=== PATIENT | male | born 1950 | race Hispanic/Latino ===

== ENCOUNTER 2016-06-06 16:00 | Emergency (ER) | payer MEDICARE, MEDICAID ==
[2016-06-06 16:26] VITALS: O2SAT 100
[2016-06-06] MEDS ORDERED: TETANUS,DIPHTHERIA,PERTUSSIS 1 EA SYG IM ONE (16:38)
--- NOTE | 2016-06-06 16:38 | RAD ---
EXAM DESCRIPTION: Hand,Right 3 Views CLINICAL HISTORY: hand pain after caught in farm machinery FINDINGS/ IMPRESSION: No fracture or dislocation. No focal osteochondral lesion Normal mineralization. No diagnostic soft tissue abnormality No advanced osteoarthritis or inflammatory arthritis Electronically signed by: Shreyas Craig MD 06/06/2016 4:37 PM CDT
--- NOTE | 2016-06-06 16:44 | ED.PDOC ---
History of Present Illness - General Chief Complaint: Upper Extremity Injury Stated Complaint: right hand injury Time Seen by Provider: 06/06/16 16:05 Source: patient Exam Limitations: no limitations - History of Present Illness Initial Comments: Patient presents with right hand pain after getting it caught in a "roto rooter " at a farm. He says the 4th and 5th digits hurt the most. The pain is throbbing and non-radiating. Worse with movement, better with rest. No previous hx of trauma to the area. No other complaints. Timing/Duration: 1-3 hours Severity: moderate Improving Factors: rest Worsening Factors: movement Associated Symptoms: denies symptoms Allergies/Adverse Reactions: Allergies NO KNOWN ALLERGY Allergy (Verified 06/06/16 16:31) Home Medications: Ambulatory Orders Ibuprofen 600 mg PO Q8HRS PRN #30 tab 03/25/14 Review of Systems - Review of Systems Constitutional: States: no symptoms reported EENTM: States: no symptoms reported Respiratory: States: no symptoms reported Cardiology: States: no symptoms reported Gastrointestinal/Abdominal: States: no symptoms reported Genitourinary: States: no symptoms reported Musculoskeletal: States: see HPI Skin: States: no symptoms reported Neurological: States: no symptoms reported Endocrine: States: no symptoms reported Hematologic/Lymphatic: States: no symptoms reported Past Medical History (General) - Patient Medical History Hx Seizures: No Hx Stroke: No Hx Dementia: No Hx Asthma: No Hx of COPD: No Hx Cardiac Disorders: No Hx Congestive Heart Failure: No Hx Pacemaker: No Hx Hypertension: Yes Hx Thyroid Disease: No Hx Diabetes: Yes Hx Gastroesophageal Reflux: Yes Hx Renal Disease: No Hx Cancer: No Hx of HIV: No Hx Hepatitis C: No Hx MRSA: Yes MRSA Source:: Wound - Vaccination History Hx Tetanus, Diphtheria Vaccination: No Hx Influenza Vaccination: No Hx Pneumococcal Vaccination: No - Social History Hx Tobacco Use: No Hx Chewing Tobacco Use: No Hx Alcohol Use: Yes Hx Substance Use: No Hx Substance Use Treatment: No Hx Depression: No Hx Physical Abuse: No Hx Emotional Abuse: No Hx Suspected Abuse: No - Female History Patient : No Family Medical History - Family History Mother Family History: No Known Living Status: Still Living Physical Exam - Physical Exam General Appearance: Alert Respiratory: lungs clear Cardiovascular/Chest: regular rate, rhythm Gastrointestinal/Abdominal: normal bowel sounds, non tender, soft Extremity: other - right 4th and 5th digits are TTP at the MIP joints. There is a superficial abrasion on the postetior MIP joint of the 5th digit. Patient has full sensation in all fingers. 5/5 camp advisor strength, Capillary refill is less than 2 seconds in all fingers and entire hand. Neurologic: no motor/sensory deficits, normal mood/affect Progress - Progress Progress: 06/06/16 16:44 Three view of right hand showed no bony abnormalities, fractures, nor dislocations. Patient given tetanus booster. Departure - Departure Clinical Impression: Contusion of hand including fingers Disposition: Discharge to Home or Self Care Condition: Good Departure Forms: ED Discharge - Pt. Copy, Patient Portal Self Enrollment Diet: resume usual diet Activity: increase activity as tolerated Home Medications: Ambulatory Orders Ibuprofen 600 mg PO Q8HRS PRN #30 tab 03/25/14 Additional Instructions: May use tylenol or ibuprofen for pain control. Ice to painful area three times per day for three days. Increase activity as tolerated.
[2016-06-06 17:38] VITALS: BP 156/74; TEMP 98.1
== END 2016-06-06 17:21 | disposition home or self-care (01) ==
LOC: ER 16:00
DX: S60.00XA Contusion of unspecified finger without damage to nail, initial encounter (principal); S60.221A Contusion of right hand, initial encounter; I10 Essential (primary) hypertension; E11.9 Type 2 diabetes mellitus without complications; K21.9 Gastro-esophageal reflux disease without esophagitis; Z86.14 Personal history of Methicillin resistant Staphylococcus aureus infection; Z23 Encounter for immunization; W30.89XA Contact with other specified agricultural machinery, initial encounter; Y92.79 Other farm location as the place of occurrence of the external cause

== ENCOUNTER 2016-08-03 19:55 | Emergency (ER) | payer MEDICARE, MEDICAID ==
[2016-08-03 20:17] VITALS: TEMP 97.2
[2016-08-03] MEDS ORDERED: LIDOCAINE 1% 10 ML VIAL INJ ONE (20:50)
[2016-08-03] MEDS ORDERED: CHLORHEXIDINE GLUCONATE 4 % 15 ML UD TOP ONE (20:52)
--- NOTE | 2016-08-03 21:37 | ED.PDOC ---
History of Present Illness - General Chief Complaint: Laceration Stated Complaint: laceration to right lower leg Time Seen by Provider: 08/03/16 20:44 Source: patient, RN notes reviewed, Vital Signs reviewed Exam Limitations: no limitations - History of Present Illness Initial Comments: Sal Li 66 y/o male stated that he tripped on metal railings at home causing laceration to right leg then fell.Denies syncopal episodes,head or neck injuries. Occurred: this evening Pain - Lower Extremity: moderate: Right Burris Method of Injury: other - tripped on metal railings Improving Factors: rest Worsening Factors: movement Associated Symptoms: pain to injured leg Allergies/Adverse Reactions: Allergies NO KNOWN ALLERGY Allergy (Verified 06/06/16 16:31) Home Medications: Ambulatory Orders Acetamin W/Cod #3 Tab [Tylenol w/CODEINE #3] 1 ea PO Q6HR PRN #10 tab 08/03/16 Review of Systems - Review of Systems Constitutional: States: no symptoms reported EENTM: States: no symptoms reported Respiratory: States: no symptoms reported Cardiology: States: no symptoms reported Gastrointestinal/Abdominal: States: no symptoms reported Genitourinary: States: no symptoms reported Musculoskeletal: States: no symptoms reported Skin: States: see HPI Neurological: States: no symptoms reported Endocrine: States: no symptoms reported Past Medical History (General) - Patient Medical History Hx Seizures: No Hx Stroke: No Hx Dementia: No Hx Asthma: No Hx of COPD: No Hx Cardiac Disorders: No Hx Congestive Heart Failure: No Hx Pacemaker: No Hx Hypertension: Yes Hx Thyroid Disease: No Hx Diabetes: Yes Hx Gastroesophageal Reflux: Yes Hx Renal Disease: No Hx Cancer: No Hx of HIV: No Hx Hepatitis C: No Hx MRSA: Yes MRSA Source:: Wound Surgical History: no surgical history - Vaccination History Hx Tetanus, Diphtheria Vaccination: Yes Hx Influenza Vaccination: Yes Hx Pneumococcal Vaccination: No - Social History Hx Tobacco Use: Yes Hx Chewing Tobacco Use: No Hx Alcohol Use: Yes Hx Substance Use: No Hx Substance Use Treatment: No Hx Depression: No Hx Physical Abuse: No Hx Emotional Abuse: No Hx Suspected Abuse: No - Activities of Daily Living Patient Lives Alone: No - family - Female History Patient : No Family Medical History - Family History Mother Family History: No Known Living Status: Still Living Physical Exam - Physical Exam General Appearance: Alert, Comfortable, No apparent distress Eyes, Ears, Nose, Throat: PERRL/EOMI, normal ENT inspection, TMs normal, pharynx normal Neck: non-tender, supple, normal inspection Cardiovascular/Respiratory: regular rate, rhythm, no M/R/G, normal peripheral pulses, normal breath sounds, no respiratory distress Gastrointestinal/Abdominal: non-tender, no organomegaly Back: normal inspection, no CVA tenderness, no vertebral tenderness Thigh/Hip: normal inspection, no evidence of injury Leg: other - right leg laceration gaping ,bleeding Knee: normal inspection, no evidence of injury Ankle: normal inspection, no evidence of injury Foot: normal inspection, no evidence of injury Neuro/Tendon: normal sensation, normal motor functions, responds to pain Mental Status: alert, oriented x 3 Skin: normal color, warm/dry, other - 6 cm laceration right leg Procedures - Laceration/Wound Repair Right Calf Wound Length (cm): 6 Wound's Depth, Shape: irregular, flap Wound Explored: no foreign body removed Irrigated w/ Saline (cc's): 50 Betadine Prep?: No - hibiclens Anesthesia: 1% Lidocaine Volume Anesthetic (cc's): 10 Wound Repaired With: sutures Suture Size/Type: 4:0, prolene Layer Closure?: No - skin undermining done to release tension Sterile Dressing Applied?: Yes Departure - Departure Clinical Impression: Laceration of leg not thigh, right Qualifiers: Encounter type: initial encounter Qualified Code(s): S81.811A - Laceration without foreign body, right lower leg, initial encounter Time of Disposition: 21:44 Disposition: Discharge to Home or Self Care Departure Forms: ED Discharge - Pt. Copy, Patient Portal Self Enrollment Instructions: How to Care for a Laceration After Repair, DI for Laceration Repair Referrals: NIMA LANIER [Primary Care Provider] - 1-2 Weeks Prescriptions: Acetamin W/Cod #3 Tab [Tylenol w/CODEINE #3] 1 ea PO Q6HR PRN #10 tab PRN Reason: Pain Home Medications: Ambulatory Orders Acetamin W/Cod #3 Tab [Tylenol w/CODEINE #3] 1 ea PO Q6HR PRN #10 tab 08/03/16 Additional Instructions: Elevate right leg 20 degrees at bedtime for 10 days;Removal of sutures 2016 [facility] ER
[2016-08-03] MEDS ORDERED: HYDROCOD/APAP 10/325 (ER DISP) # 3 tablets PO ONE (21:47)
[2016-08-03 21:57] VITALS: BP 167/72; O2SAT 98
== END 2016-08-03 21:57 | disposition home or self-care (01) ==
LOC: ER 19:55
DX: S81.811A Laceration without foreign body, right lower leg, initial encounter (principal); W01.198A Fall on same level from slipping, tripping and stumbling with subsequent striking against other object, initial encounter; Z86.14 Personal history of Methicillin resistant Staphylococcus aureus infection; Z87.891 Personal history of nicotine dependence; I10 Essential (primary) hypertension; Y92.009 Unspecified place in unspecified non-institutional (private) residence as the place of occurrence of the external cause

== ENCOUNTER → 2016-08-08 | Outpatient (CLI) | payer MEDICARE, MEDICAID | END | disposition home or self-care (01) | LOC: LAB 07:48 | PROVIDERS: ATTEND Emergency Medicine | DX: E78.5 Hyperlipidemia, unspecified (principal); Z00.00 Encounter for general adult medical examination without abnormal findings; E11.9 Type 2 diabetes mellitus without complications; I10 Essential (primary) hypertension; R97.20 Elevated prostate specific antigen [PSA]; R53.83 Other fatigue | CPT/HCPCS: 36415; 80053; 80061; 83036; 84443; 85025; G0103 ==

== ENCOUNTER 2016-08-17 16:16 | Emergency (ER) | payer MEDICARE, MEDICAID ==
[2016-08-17] MEDS ORDERED: SODIUM CHLORIDE 0.9% (FLUSH) 10 ML SYG IV PRN (16:39)
[2016-08-17] MEDS ORDERED: ASPIRIN TABLET 325 MG TAB PO ONE (16:39)
[2016-08-17] MEDS ORDERED: ONDANSETRON INJ 4 MG/2 ML VIAL IV ONE (16:39)
[2016-08-17] MEDS ORDERED: NITROGLYCERIN 0.4 MG 25 EA TAB SL ONE (16:39)
--- NOTE | 2016-08-17 16:39 | ED.PDOC ---
History of Present Illness - General Chief Complaint: General Stated Complaint: chest pain Time Seen by Provider: 08/17/16 16:38 Source: patient Exam Limitations: no limitations - History of Present Illness Initial Comments: Sal Li 66 y/o male stated he had been having non radiating dull chest pain left side since he fell on his left side 2 weeks ago.Stated aggravated by moving left arm.No diaphoresis ,no sob.no nausea vomiting .Has history of hypertension and DM2 taking mostly oral meds. No previous history of heart disease. Timing/Duration: other - 2 weeks ago Severity: moderate Improving Factors: rest Worsening Factors: movement Associated Symptoms: denies symptoms Allergies/Adverse Reactions: Allergies NO KNOWN ALLERGY Allergy (Verified 08/17/16 18:15) Home Medications: Ambulatory Orders Aspirin [Aspirin Adult Low Dose] 81 mg PO BEDTIME #90 tab 08/17/16 Lidocaine [Aspercreme Lidocaine Patc] 4 % EX BID #20 pad 08/17/16 Lisinopril 10 mg PO DAILY 08/17/16 metFORMIN HCL [Glucophage] 500 mg PO DAILY 08/17/16 Review of Systems - Review of Systems Constitutional: States: no symptoms reported EENTM: States: no symptoms reported Respiratory: States: no symptoms reported Cardiology: States: see HPI Gastrointestinal/Abdominal: States: no symptoms reported Genitourinary: States: no symptoms reported Musculoskeletal: States: see HPI Skin: States: no symptoms reported Neurological: States: no symptoms reported Endocrine: States: no symptoms reported Hematologic/Lymphatic: States: no symptoms reported Past Medical History (General) - Patient Medical History Hx Seizures: No Hx Stroke: No Hx Dementia: No Hx Asthma: No Hx of COPD: No Hx Cardiac Disorders: No Hx Congestive Heart Failure: No Hx Pacemaker: No Hx Hypertension: Yes Hx Thyroid Disease: No Hx Diabetes: Yes Hx Gastroesophageal Reflux: Yes Hx Renal Disease: No Hx Cancer: No Hx of HIV: No Hx Hepatitis C: No Hx MRSA: Yes MRSA Source:: Wound Surgical History: appendectomy - Vaccination History Hx Tetanus, Diphtheria Vaccination: Yes Hx Influenza Vaccination: Yes Hx Pneumococcal Vaccination: No - Social History Hx Tobacco Use: Yes Hx Chewing Tobacco Use: No Hx Alcohol Use: Yes Hx Substance Use: No Hx Substance Use Treatment: No Hx Depression: No Hx Physical Abuse: No Hx Emotional Abuse: No Hx Suspected Abuse: No - Activities of Daily Living Patient Lives Alone: No - Grooming Ability: Independent Eating (Feeding) Ability: Independent Toileting Ability: Independent - Female History Patient : No Family Medical History - Family History Mother Family History: No Known Living Status: Still Living Hx Family Hypertension: Yes - dad Hx Cardiac Disease: Yes - mom still alive 86 y/o Hx Family Diabetes: Yes - dad Physical Exam - Physical Exam General Appearance: Alert, Comfortable, No apparent distress Eye Exam: bilateral normal Ears, Nose, Throat: hearing grossly normal, normal ENT inspection, normal pharynx Neck: non-tender, full range of motion, supple Respiratory: lungs clear, normal breath sounds, other - tenderness to palpation left upper rib cage Cardiovascular/Chest: normal peripheral pulses, regular rate, rhythm, no murmur Peripheral Pulses: radial,right: 2+, radial,left: 2+ Gastrointestinal/Abdominal: normal bowel sounds, non tender, soft Back Exam: normal inspection, no CVA tenderness, no vertebral tenderness Extremity: normal range of motion, non-tender, no calf tenderness Neurologic: no motor/sensory deficits, alert, normal mood/affect, oriented x 3 Skin Exam: normal color, warm/dry Lymphatic: no adenopathy Progress - Results/Orders Results/Orders: 08/17/16 16:30 EKG STAT 08/17/16 16:39 IV Care:Saline Lock per Protoc QSHIFT Telemetry .ONCE Sodium Chloride 0.9% (Flush) [Saline Flush Syringe] 10 ml IV PRN PRN EKG Stat Pulse Ox Stat Laboratory Results WBC 6.1 K/mm3 (4.8-10.8) 08/17/16 16:57 RBC 2.95 M/mm3 (4.70-6.10) L 08/17/16 16:57 Hgb 11.5 gm/dL (14.0-18.0) L 08/17/16 16:57 Hct 34.1 % (42.0-52.0) L 08/17/16 16:57 MCV 115.3 fl (80.0-94.0) H 08/17/16 16:57 MCH 38.9 pg (27.0-31.0) H 08/17/16 16:57 MCHC 33.7 g/dL (33.0-37.0) 08/17/16 16:57 RDW 13.9 % (11.5-14.5) 08/17/16 16:57 Plt Count 269 K/mm3 (130-400) 08/17/16 16:57 MPV 7.6 fl (7.40-10.4) 08/17/16 16:57 Absolute Neuts (auto) 2.80 K/uL (1.8-6.8) 08/17/16 16:57 Absolute Lymphs (auto) 2.50 K/uL (1.0-3.4) 08/17/16 16:57 Absolute Monos (auto) 0.60 K/uL (0.2-0.8) 08/17/16 16:57 Absolute Eos (auto) 0.20 K/uL (0.0-0.4) 08/17/16 16:57 Absolute Basos (auto) 0.00 K/uL (0.0-0.1) 08/17/16 16:57 Neutrophils % 46.0 % (42.0-78.0) 08/17/16 16:57 Lymphocytes % 41.2 % (20.0-50.0) 08/17/16 16:57 Monocytes % 9.2 % (2.0-9.0) H 08/17/16 16:57 Eosinophils % 2.8 % (1.0-5.0) 08/17/16 16:57 Basophils % 0.8 % (0.0-2.0) 08/17/16 16:57 PT 10.5 SECONDS (9.4-12.5) 08/17/16 16:57 INR 0.930 08/17/16 16:57 PTT (SP) 30.6 SECONDS (25.1-36.5) 08/17/16 16:57 D-Dimer, Quantitative < 230 ng/mL (0-230) 08/17/16 16:57 Sodium 138 mmol/L (135-145) 08/17/16 16:57 Potassium 3.3 mmol/L (3.6-5.0) L 08/17/16 16:57 Chloride 104 mmol/L (101-111) 08/17/16 16:57 Carbon Dioxide 28 mmol/L (21-31) 08/17/16 16:57 Anion Gap 9.3 (12-18) L 08/17/16 16:57 BUN 14 mg/dL (7-18) 08/17/16 16:57 Creatinine 0.96 mg/dL (0.6-1.3) 08/17/16 16:57 BUN/Creatinine Ratio 14.6 (10-20) 08/17/16 16:57 Random Glucose 147 mg/dL (70-105) H 08/17/16 16:57 Serum Osmolality 278.8 mOsm/L (275-295) 08/17/16 16:57 Calcium 8.7 mg/dL (8.4-10.2) 08/17/16 16:57 Magnesium 1.6 mg/dL (1.8-2.5) L 08/17/16 16:57 Total Bilirubin 0.6 mg/dL (0.2-1.0) 08/17/16 16:57 Direct Bilirubin < 0.1 mg/dL (0-0.2) 08/17/16 16:57 Indirect Bilirubin 0.5 mg/dL (0.2-0.8) 08/17/16 16:57 AST 46 IU/L (10-42) H 08/17/16 16:57 ALT 42 IU/L (10-60) 08/17/16 16:57 Alkaline Phosphatase 65 IU/L (42-121) 08/17/16 16:57 Creatine Kinase 196 IU/L (38-174) H 08/17/16 16:57 CK-MB (CK-2) 3.0 ng/mL (0.0-4.4) 08/17/16 16:57 CK-MB (CK-2) % Not Reportable 08/17/16 16:57 Troponin I < 0.02 ng/mL (0.01-0.05) 08/17/16 16:57 B-Natriuretic Peptide 84.4 pg/ml (0-100) 08/17/16 16:57 Serum Total Protein 6.8 gm/dL (6.4-8.2) 08/17/16 16:57 Albumin 3.6 g/dl (3.2-5.5) 08/17/16 16:57 Vital Signs - 8 hr 08/17/16 08/17/16 08/17/16 16:20 17:20 18:16 Temperature 98.5 F Pulse Rate [ 63 59 L 60 Left Radial] Respiratory 18 18 18 Rate Blood Pressure 164/76 168/79 174/83 [Left Arm] O2 Sat by Pulse 99 94 L 98 Oximetry - EKG/XRAY/CT EKG: Sinus, LVH Comments: heart rate 63 XRAY: chest - and rib series no rib fractures or pneu,othorax Departure - Departure Clinical Impression: Contusion of chest wall with intact skin Chest pain Qualifiers: Chest pain type: unspecified Qualified Code(s): R07.9 - Chest pain, unspecified Time of Disposition: 18:47 Disposition: Discharge to Home or Self Care Condition: Good Departure Forms: ED Discharge - Pt. Copy, Patient Portal Self Enrollment Referrals: NIMA LANIER [Primary Care Provider] - 1-2 Weeks Prescriptions: Aspirin [Aspirin Adult Low Dose] 81 mg PO BEDTIME #90 tab Lidocaine [Aspercreme Lidocaine Patc] 4 % EX BID #20 pad Home Medications: Ambulatory Orders Aspirin [Aspirin Adult Low Dose] 81 mg PO BEDTIME #90 tab 08/17/16 Lidocaine [Aspercreme Lidocaine Patc] 4 % EX BID #20 pad 08/17/16 Lisinopril 10 mg PO DAILY 08/17/16 metFORMIN HCL [Glucophage] 500 mg PO DAILY 08/17/16 Additional Instructions: RETURN TO EMERGENCY ROOM NEEDED
[2016-08-17 18:15] VITALS: TEMP 98.5
--- NOTE | 2016-08-17 18:29 | RAD ---
EXAM DESCRIPTION: Chest,1 View (accession [id number]), Ribs,Left 3 Views (accession [id number]) CLINICAL HISTORY: 66 years, Male, pain COMPARISON: Chest x-ray dated 03/25/2014. FINDINGS: A frontal chest radiograph and for radiographs of the left-sided ribs were performed. The lungs are well expanded and clear. The costophrenic sulci are sharp. The aortic arch is calcified. The cardiac silhouette, hilar regions, trachea, soft tissues and bony structures are unremarkable. In particular, no pneumothorax or rib fracture is seen. A 4 mm calcification projects over the RIGHT upper quadrant. Degenerative changes are noted in the lumbar spine. Incidental transitional L1 vertebral body. IMPRESSION: No evidence of acute traumatic thoracic injury. No rib fracture is seen. No pneumothorax. Possible gallstone. Electronically signed by: Radha Gonzales MD 08/17/2016 6:29 PM CDT
--- NOTE | 2016-08-17 18:29 | RAD ---
EXAM DESCRIPTION: Chest,1 View (accession [id number]), Ribs,Left 3 Views (accession [id number]) CLINICAL HISTORY: 66 years, Male, pain COMPARISON: Chest x-ray dated 03/25/2014. FINDINGS: A frontal chest radiograph and for radiographs of the left-sided ribs were performed. The lungs are well expanded and clear. The costophrenic sulci are sharp. The aortic arch is calcified. The cardiac silhouette, hilar regions, trachea, soft tissues and bony structures are unremarkable. In particular, no pneumothorax or rib fracture is seen. A 4 mm calcification projects over the RIGHT upper quadrant. Degenerative changes are noted in the lumbar spine. Incidental transitional L1 vertebral body. IMPRESSION: No evidence of acute traumatic thoracic injury. No rib fracture is seen. No pneumothorax. Possible gallstone. Electronically signed by: Radha Gonzales MD 08/17/2016 6:29 PM CDT
[2016-08-17 18:30] VITALS: BP 174/83; O2SAT 98
== END 2016-08-17 19:00 | disposition home or self-care (01) ==
LOC: ER 16:16
DX: S20.219A Contusion of unspecified front wall of thorax, initial encounter (principal); E11.9 Type 2 diabetes mellitus without complications; I10 Essential (primary) hypertension; K21.9 Gastro-esophageal reflux disease without esophagitis; Z79.82 Long term (current) use of aspirin; Z86.14 Personal history of Methicillin resistant Staphylococcus aureus infection; Z87.891 Personal history of nicotine dependence; W19.XXXA Unspecified fall, initial encounter; Y92.9 Unspecified place or not applicable

== ENCOUNTER → 2017-03-01 | Outpatient (CLI) | payer MEDICARE, MEDICAID | LOC: LAB.O 09:26 | PROVIDERS: ATTEND Emergency Medicine | DX: I10 Essential (primary) hypertension (principal); E11.9 Type 2 diabetes mellitus without complications; D52.0 Dietary folate deficiency anemia ==

== ENCOUNTER → 2017-10-27 | Outpatient (CLI) | payer MEDICARE, MEDICAID | LOC: LAB.O 09:12 | PROVIDERS: ATTEND Nurse Practitioner Acute Care | DX: B20 Human immunodeficiency virus [HIV] disease (principal) ==

== ENCOUNTER → 2017-12-01 | Outpatient (CLI) | payer MEDICARE, MEDICAID | LOC: LAB.O 09:29 | PROVIDERS: ATTEND Internal Medicine Interventional Cardiology | DX: R55 Syncope and collapse (principal); I10 Essential (primary) hypertension ==

== ENCOUNTER → 2018-05-11 | Outpatient (CLI) | payer MEDICARE, MEDICAID | LOC: LAB.O 05-08 09:01 | PROVIDERS: ATTEND Internal Medicine Infectious Disease | DX: B20 Human immunodeficiency virus [HIV] disease (principal) ==

== ENCOUNTER → 2018-06-16 | Outpatient (CLI) | payer MEDICARE, MEDICAID ==
--- NOTE | 2018-06-16 20:27 | MRI ---
EXAM DESCRIPTION: Brain w/o Contrast: MRI. CLINICAL HISTORY: TRANS CEREBRAL ISCHEMIC ATTACK COMPARISON: None. TECHNIQUE: Multiplanar, high-field MRI unit, multiple diffusion sequences, multiple conventional sequences without contrast. FINDINGS: Hyperintense FLAIR and T2-weighted signal in the periventricular white matter in the joseph radiata and centrum semiovale and beavers-white matter junctions of the cerebral hemispheres. Relatively symmetric . No hemorrhage, no cerebral edema, no mass-effect. No diffusion restriction. Also hyperintense FLAIR and T2 signal in the bilateral basal ganglia with prominent vascularity symmetric bilaterally with no diffusion restriction.. Hyperintense FLAIR and T2 signal in the carlos of the brainstem. No diffusion restriction. Normal signal in the bilateral cerebellar hemispheres. No hemorrhage, no cerebral edema, no mass-effect. No diffusion restriction. Concordance of the diffusion and non-diffusion sequences with no diffusion restriction. Cortical sulci, ventricles, and other CSF spaces, and the subdural spaces are normally configured. No effacement or displacement. No midline shift. No extra-axial hemorrhage. Normal flow signal void in the major vessels of the kenaitze Elizondo, and the venous sinuses. IACs are symmetric bilaterally. Normal signal in the bilateral mastoid air cells. No mass effect in the bilateral cerebellopontine angles. Pituitary gland occupies approximately half of the sella. Base of the cerebellar tonsils is above the foramen magnum. Normal signal in the bilateral paranasal sinuses. The bony calvarium is intact. IMPRESSION: 1. Diffuse bilateral periventricular white matter signal changes involving the joseph radiata and centrum semiovale with no hemorrhage or mass effect. Differential includes cerebral microvascular disease, age-related changes, demyelinating process such as multiple sclerosis, inflammatory process, or vasculitis. Also minimal ischemic changes in the bilateral basal ganglia. No intra-axial or extra-axial hemorrhage, no mass effect or midline shift, no acute or subacute infarction. Also minimal involvement of the carlos of the brainstem. Electronically signed by: Gabriel Kruger MD 06/16/2018 8:24 PM CDT
--- NOTE | 2018-06-17 10:13 | US ---
EXAM DESCRIPTION: Carotid Duplex: ULTRASOUND. CLINICAL HISTORY: 68 years Male TRANS CEREBRAL ISCHEMIC ATTACK COMPARISON: MRI of the brain on the same visit. TECHNIQUE: Transcutaneous scanning utilizing beavers-scale and Doppler modes to evaluate the bilateral carotid systems and vertebral arteries. Percentage of diameter of stenosis or no stenosis recorded will be based upon NASCET criteria. FINDINGS: Peak systolic/end diastolic (CM-Sec) CCA Right 63/9 Left 83/11. ICA Right proximal 38/5, distal 69/14. Left proximal 43/7, Distal 70/13. Vertebral Right 58/9 Left 49/9. ECA (PS Only) Right 110 left 97. ICA/CCA peak systolic ratio: Right 0.8 Left 0.8 ICA/CCA end diastolic ratio: Right n/a Left 1.7 Vertebral arteries: antegrade flow. Comments Comments: Bilateral plaque in the common carotid artery bifurcations and proximal ICAs. 29% area stenosis in the right mid CCA bulb and 32% diameter stenosis. Minimal spectral broadening in the proximal left ICA. IMPRESSION: 1. Doppler evaluation of the bilateral carotid systems and vertebral arteries shows no hemodynamically significant stenoses. 2. No significant amount of plaque seen in the carotid arteries bilaterally. Bilateral vertebral arteries showed antegrade-cephalad flow. Electronically signed by: Gabriel Kruger MD 06/17/2018 10:10 AM CDT
== END ==
LOC: MRI 13:30
PROVIDERS: ATTEND Emergency Medicine
DX: G45.9 Transient cerebral ischemic attack, unspecified (principal)

== ENCOUNTER → 2018-07-16 | Outpatient (CLI) | payer MEDICARE, MEDICAID ==
--- NOTE | 2018-07-17 08:23 | CT ---
EXAM DESCRIPTION: Soft Tissue Neck w/wo Contrast CLINICAL HISTORY: ENLARGED LYMPHNODES COMPARISON: None. TECHNIQUE: Pre and postcontrast CT images of the neck are obtained with coronal and sagittal reconstructed images. This exam was performed according to our departmental dose-optimization program, which includes automated exposure control, adjustment of the mA and/or kV according to patient size and/or use of iterative reconstruction technique . FINDINGS: Markers placed in the regions of palpable abnormality are noted. Marker lateral to the left skull base inferior to the mastoid air cells is seen. No underlying soft tissue or cystic mass is seen. No obvious tissue asymmetry. The posterior aspect of the sternocleidomastoid muscle is seen in this region. Second marker is placed midline in the posterior upper neck at the level of C2. No focal underlying soft tissue or cystic mass is seen. Increased amount of subcutaneous soft tissue fat is seen posterior to the neck that appears relatively symmetric. Visualized skull base shows no acute findings. Bilateral parotid and submandibular glands are normal and symmetric. Soft tissue of the posterior pharynx and oropharynx is symmetric and unremarkable. The epiglottis and vocal cords are unremarkable. Thyroid is unremarkable. Mild to moderate calcified plaque of the carotid bulb to proximal internal carotid artery is seen. Nonspecific less than 1 cm submandibular and cervical chain lymph nodes are seen. The largest submandibular lymph nodes measure 10 mm short axis on the right and 9 mm on the left. The lung apices are unremarkable. Mild to moderate disc space narrowing and disc osteophytic ridging is seen from C4 through C7. At least moderate bilateral foraminal encroachment at C4-5 is seen. Degenerative changes of the C1-2 are seen. Cord indentation is noted with multiple caries and periapical lucency in the posterior molars of the mandible. IMPRESSION: Borderline submandibular lymph nodes are probably reactive. Increased subcutaneous fat posterior to the neck appear symmetric. Differential includes sequela of long-term steroid use, "buffalo hump." Less likely symmetric lipoma is a consideration. No significant underlying soft tissue or cystic nodule is seen in the marker at the left skull base. Inferior to this is a small lymph node in the deep subcutaneous soft tissues measuring 7 x 12 mm. Spondylitic changes of the spine are seen. Poor dentition is noted. Correlate with dental x-rays. Electronically signed by: Ethan Seals MD 07/17/2018 8:21 AM CDT
== END ==
LOC: CT 10:08
PROVIDERS: ATTEND Emergency Medicine
DX: R59.0 Localized enlarged lymph nodes (principal); I10 Essential (primary) hypertension; E11.9 Type 2 diabetes mellitus without complications

== ENCOUNTER → 2018-10-01 | Outpatient (CLI) | payer MEDICARE, MEDICAID | LOC: LAB.O 09:54 | PROVIDERS: ATTEND Internal Medicine Endocrinology, Diabetes & Metabolism | DX: E88.1 Lipodystrophy, not elsewhere classified (principal) ==

== ENCOUNTER → 2018-12-07 | Outpatient (CLI) | payer MEDICARE, MEDICAID | LOC: LAB.O 12-04 08:41 | PROVIDERS: ATTEND Internal Medicine Infectious Disease | DX: B20 Human immunodeficiency virus [HIV] disease (principal) ==

== ENCOUNTER → 2019-11-30 | Outpatient (CLI) | payer MEDICARE, MEDICAID ==
--- NOTE | 2019-11-30 13:53 | CT ---
EXAM DESCRIPTION: Abdoment/Pelvis w/o Contrast: Computed Tomography. CLINICAL HISTORY: 69 years Male CHRONIC KIDNEY DISEASE STAGE 4 COMPARISON: None. TECHNIQUE: Spiral-axial scans 2.5 x 2.5 mm intervals through the abdomen and pelvis without oral or IV contrast. Coronal and sagittal 2.0 mm reconstructions. Total Exam DLP: 871 mGy-cm. This exam was performed according to our departmental CT dose-optimization program which includes automated exposure control, adjustment of the mA and/or kV according to patient size and/or use of iterative reconstruction technique; to reduce radiation dose to as low as reasonably achievable (ALARA). Study performed without IV contrast due to poor renal function. FINDINGS: Lung bases and pleura: 5 mm subpleural nodule versus pleural nodule lateral superior segment left lower lobe on axial series, image 15. Coronary artery calcifications. Liver, stomach, spleen, and adrenal glands: 1.7 cm mass in the left adrenal gland with Hounsfield density -20 consistent with an adrenal adenoma. Right adrenal gland and spleen are negative. Liver is unremarkable except for scattered calcifications. Pancreas, Gallbladder, and Ducts: Gallbladder visualized. Normal caliber of the duct. Pancreas negative. Kidneys and Ureters: Thinning of the cortex and low-density cystlike structure with calcifications abutting the thickened cortex posterior upper pole right kidney. Calcification is 8 millimeters and not interpreted to be within the collecting system. Second calcification is 2.7 mm in the same site. Questionable adjacent pararenal fatty stranding. 2.5 cm cyst lateral cortex left kidney lower pole. No calcifications or perirenal fluid. Bilateral ureters normal caliber. Mesentery: . Residual paired Umbilical veins from the internal iliac veins. Normal variant. Aorta: Moderate atherosclerotic calcifications with normal caliber of the outer wall. Small Bowel: Unremarkable. Terminal Ileum/Cecum: Mural fatty infiltration in the cecum but normal caliber. Appendix not visualized. Colon: Mild to moderate fecal matter throughout and mild redundancy of the sigmoid colon. Scattered diverticula with no complications. Pelvic Organs: Minimal wall thickening. Urinary bladder with no stones. Prostate gland abutting the bladder. No free fluid. Spine and Bony Pelvis: Transitional lumbosacral vertebra interpreted to be a sacralized L5 with rudimentary L5-S1 disc and sacralized canal and foramina. L4-L5 spondylosis anterior disc bulge. Retrolisthesis and bilateral significant foraminal narrowing. Spondylosis lower thoracic spine. Minimal arthrosis bilateral hip joints. Abdominal Wall/Back Soft Tissues: Bilateral fatty inguinal hernias not containing bowel. IMPRESSION: 1. Subpleural 5 mm pulmonary nodule versus pleural nodule abutting the lateral left lower lobe. [facility] Best Practice guidelines:5.0 mm solid pulmonary nodule detected on incomplete chest CT. No routine follow-up imaging is recommended. These guidelines do not apply to immunocompromised patients and patients with cancer. Follow up in patients with significant comorbidities as clinically warranted. For lung cancer screening, adhere to Lung-RADS guidelines. Reference: Radiology. 2017; 284(1):228-43. 2. 1.7 cm left adrenal adenoma. 3. Thinning of the cortex possibly from prior infarction, infection, or injury, superior pole posterior right kidney. Calcific and fluid component. Correlate with clinical history and prior renal or CT abdominal examinations if available. Consider follow-up renal CT scan with IV contrast. 4. Minimal constipation and scattered diverticula but no complications. 5. Transitional lumbosacral spine segment. Spondylosis and retrolisthesis at L4-L5 with disc bulging and significant foraminal narrowing. Correlate for radiculopathy. Transitional lumbosacral vertebra can cause abnormal biomechanics and resulting in low back pain. Electronically signed by: Gabriel Kruger MD 11/30/2019 1:51 PM CDT
== END ==
LOC: RAD 08:24
PROVIDERS: ATTEND Internal Medicine Nephrology
DX: N18.4 Chronic kidney disease, stage 4 (severe) (principal)